=== PATIENT | female | born 1950 | race Caucasian/White ===

== ENCOUNTER 2017-04-14 10:49 | Outpatient (CLI) | payer OTHER ==
--- NOTE | 2017-04-14 15:21 | MMO ---
BILATERAL SCREENING MAMMOGRAM: Date: 04/14/17 INDICATION: Annual exam. COMPARISON: Prior exam dated 08/17/14. FINDINGS: Interpretation of this exam was assisted with computer-aided detection. There are scattered fibroglandular elements bilaterally. There is a small, stable, focal asymmetry within the lower inner aspect of the right breast. No new suspicious mass, cluster of microcalcifications, or area of architectural distortion is eviden t. IMPRESSION: BIRADS 2: Benign Finding(s) Recommend routine annual mammographic screening. POS: [facility]
== END 2017-04-14 10:50 | disposition home or self-care (01) ==
LOC: MAMMO 10:49
PROVIDERS: ATTEND Internal Medicine
DX: Z12.31 Encounter for screening mammogram for malignant neoplasm of breast (principal)
CPT/HCPCS: 77067; G0202

== ENCOUNTER 2017-06-25 06:48 | Day surgery (SDC) | payer OTHER ==
[2017-06-24 09:02] VITALS: BMI 29.0
[2017-06-25 07:43] VITALS: BP 126/60; TEMP 98.2
--- NOTE | 2017-06-25 11:37 | RAD ---
LUMBAR SPINE MYELOGRAM INDICATION: Lumbar radiculopathy. History of prior surgery. PROCEDURE: After informed consent had been obtained, the patient was escorted to the interventional suite and pl aced on the procedural table. [employer] imaging was performed. The patient was placed into a prone posi tion. Skin on the low back was then prepped and draped in the standard sterile fashion and topical a nd regional soft tissue anesthesia was achieved with 1% lidocaine and sodium bicarbonate. Left interl aminar, L3-4 level, approach was selected, and a 22 gauge needle was uneventfully advanced into the t hecal sac with clear color CSF. Subsequently, 9 cc Isovue M200 was instilled into the thecal sac und er real time fluoroscopy. Appropriate opacification of thecal sac demonstrated with imaging stored f or confirmation. The needle was then removed from the patient. The patient tolerated the procedure well and was then transferred to CT to undergo subsequent myelogram. Reference separate report for f ull details. Exposure Data: 0.1 minute intermittent fluoroscopy. IMPRESSION: Technically successful lumbar myelogram as detailed above. POS: [facility]
--- NOTE | 2017-06-25 12:30 | CT ---
CT LUMBAR SPINE WITH CONTRAST: CT LUMBAR MYELOGRAM: CLINICAL HISTORY: Lumbar radiculopathy. Prior back surgery. FINDINGS: The conus medullaris is normal in morphology and terminates at the L1-L2 level. There is postoperati ve metallic fixation of L3-L4 with bilateral pedicle screws at L3 and L4 conjoined by bilateral verti sandra interconnecting rods. There is no obvious hardware complication identified. Moderate degenerati ve and postoperative facet hypertrophy is present at the lower lumbar spine. There is a chronic appe aring fracture at the medial aspect of the right L3-L4 facet joint, involving the right L4 lamina. O sseous fragmentation does encroach upon and produce mild mass effect upon the posterior and right asp ect of the thecal sac, at the L4 level. There is evidence of L3-L4 level left hemilaminectomy. L5-S1: There is no high grade central canal or foraminal stenosis. L4-L5: There is a disk osteophyte complex without high grade central canal stenosis. No significant foraminal stenosis. L3-L4: There is disk osteophyte complex with degenerative disk space narrowing and marginal osteophy te formation. Minimal narrowing of the central canal is present. There is mild left foraminal narro wing on the basis of left asymmetric disk osteophyte complex. L2-L3: An inferior L3 Schmorl's node is present. There is degenerative gas vacuum phenomenon at the level of the disk space. Mild to moderate central canal stenosis on the basis of a broad-based disk with crowding of each bilateral traversing L3 nerve root within the subarticular zones. There is mi ld bilateral neural foraminal narrowing. L1-L2: No significant compromise of the central canal or neural foramina. Incidental note of atherosclerosis and colonic diverticulosis. IMPRESSION: 1. Postoperative lumbar spine with multilevel degenerative change, as outlined above. 2. There is a broad-based disk bulge, left asymmetric, at the L2-L3 level, with mild to moderate eva tral canal stenosis and crowding of the bilateral traversing L3 nerve roots. Mild bilateral neural f oraminal stenosis at this level is also present. 3. Postoperative fusion of the L3-L4 level. Evidence of a prior left hemilaminectomy. There is a c hronic appearing fracture of the right L4 lamina, just medial to the postoperative site. The osseou s hypertrophy/fragmentation related to the fracture site does produce mild mass effect upon the right posterolateral thecal sac of the L4 level, with slight ventral displacement of the adjacent nerve ro ots. There is no associated subluxation of significance. Benefit may be obtained with flexion/exten lucio radiographs. Telephone call of findings placed to the patient's surgeon, Dr. Azar Francisco, at the time of interpreta tion. CODE CR POS: [facility]
[2017-06-25] MEDS ORDERED: Iopamidol-M 200 41% 20 ML VIAL ONE (16:06)
== END 2017-06-25 09:35 | disposition home or self-care (01) ==
LOC: RAD 06:48
PROVIDERS: ATTEND Neurological Surgery
PROC: B02B1ZZ Computerized Tomography (CT Scan) of Spinal Cord using Low Osmolar Contrast (ICD-10-PCS; principal; 2017-06-25)
DX: M48.061 Spinal stenosis, lumbar region without neurogenic claudication (principal); M51.16 Intervertebral disc disorders with radiculopathy, lumbar region; I10 Essential (primary) hypertension; M19.90 Unspecified osteoarthritis, unspecified site; Z88.8 Allergy status to other drugs, medicaments and biological substances; Z88.0 Allergy status to penicillin; Z88.5 Allergy status to narcotic agent; Z98.1 Arthrodesis status; Z79.890 Hormone replacement therapy; Z79.899 Other long term (current) drug therapy
CPT/HCPCS: 62304; 72132

== ENCOUNTER 2018-04-15 08:16 | Outpatient (CLI) | payer OTHER, MEDICARE | END 2018-04-15 08:17 | disposition home or self-care (01) | LOC: BICMAMMO 08:16 | PROVIDERS: ATTEND Internal Medicine | DX: Z12.31 Encounter for screening mammogram for malignant neoplasm of breast (principal) | CPT/HCPCS: 77063; 77067 ==

== ENCOUNTER 2019-04-20 07:30 | Outpatient (CLI) | payer MEDICARE, OTHER ==
--- NOTE | 2019-04-20 08:19 | MMO ---
Bilateral MAMMO Bilat Screen [facility]. CLINICAL HISTORY: Patient is 68 years old and is seen for screening. The patient has no family history of breast cancer. The patient has no personal history of cancer. VIEWS: The views performed were: bilateral craniocaudal with tomosynthesis and bilateral mediolateral oblique with tomosynthesis. FILMS COMPARED: The present examination has been compared to prior imaging studies performed at [facility] on 04/26/2009 and 04/15/2018, and at [facility][1] on 04/24/2007 and 04/25/2008. This study has been interpreted with the assistance of computer-aided detection. MAMMOGRAM FINDINGS: The breasts are almost entirely fat. There are no suspicious masses, suspicious calcifications, or new areas of architectural distortion. IMPRESSION: THERE IS NO MAMMOGRAPHIC EVIDENCE OF MALIGNANCY. A ROUTINE FOLLOW-UP MAMMOGRAM IN 1 YEAR IS RECOMMENDED. THE RESULTS OF THIS EXAM WERE SENT TO THE PATIENT. ACR BI-RADS Category 1 - Negative MAMMOGRAPHY NOTE: 1. A negative mammogram report should not delay a biopsy if a dominant of clinically suspicious mass is present. 2. Approximately 10% to 15% of breast cancers are not detected by mammography. 3. Adenosis and dense breasts may obscure an underlying neoplasm. Reported by: EDITH SANDOVAL MD Electonically Signed: [id number]
== END 2019-04-20 07:31 | disposition home or self-care (01) ==
LOC: BICMAMMO 07:30
PROVIDERS: ATTEND Internal Medicine
DX: Z12.31 Encounter for screening mammogram for malignant neoplasm of breast (principal)
CPT/HCPCS: 77063; 77067

== ENCOUNTER 2020-04-24 08:38 | Outpatient (CLI) | payer MEDICARE, OTHER ==
--- NOTE | 2020-04-24 09:59 | MMO ---
Bilateral MAMMO Bilat Screen [facility]. CLINICAL HISTORY: Patient is 69 years old and is seen for screening. The patient has no family history of breast cancer. The patient has no personal history of cancer. VIEWS: The views performed were: bilateral craniocaudal with tomosynthesis and bilateral mediolateral oblique with tomosynthesis. FILMS COMPARED: The present examination has been compared to prior imaging studies performed at [facility] on 03/18/2018, and at [facility] on 05/24/2016, 04/15/2018 and 04/20/2019. This study has been interpreted with the assistance of computer-aided detection. MAMMOGRAM FINDINGS: The breasts are almost entirely fat. There are no suspicious masses, suspicious calcifications, or new areas of architectural distortion. IMPRESSION: THERE IS NO MAMMOGRAPHIC EVIDENCE OF MALIGNANCY. A ROUTINE FOLLOW-UP MAMMOGRAM IN 1 YEAR IS RECOMMENDED. THE RESULTS OF THIS EXAM WERE SENT TO THE PATIENT. ACR BI-RADS Category 1 - Negative MAMMOGRAPHY NOTE: 1. A negative mammogram report should not delay a biopsy if a dominant of clinically suspicious mass is present. 2. Approximately 10% to 15% of breast cancers are not detected by mammography. 3. Adenosis and dense breasts may obscure an underlying neoplasm. Reported by: JESSEE QUINTERO MD Electonically Signed: [id number]
== END 2020-04-24 08:39 | disposition home or self-care (01) ==
LOC: BICMAMMO 08:38
PROVIDERS: ATTEND Internal Medicine
DX: Z12.31 Encounter for screening mammogram for malignant neoplasm of breast (principal)
CPT/HCPCS: 77063; 77067

== ENCOUNTER 2021-04-27 08:09 | Outpatient (CLI) | payer MEDICARE, OTHER | END 2021-04-27 08:10 | disposition home or self-care (01) | LOC: BICMAMMO 08:09 | PROVIDERS: ATTEND Internal Medicine | DX: Z12.31 Encounter for screening mammogram for malignant neoplasm of breast (principal) | CPT/HCPCS: 77063; 77067 ==

== ENCOUNTER 2021-12-11 14:43 | Outpatient (CLI) | payer MEDICARE, OTHER | END 2021-12-11 14:44 | disposition home or self-care (01) | LOC: ULT 14:43 | PROVIDERS: ATTEND Internal Medicine | DX: M25.462 Effusion, left knee (principal) | CPT/HCPCS: 76999 ==

== ENCOUNTER 2022-07-04 08:50 | Outpatient (CLI) | payer MEDICARE, OTHER | END 2022-07-04 08:51 | disposition home or self-care (01) | LOC: BICMAMMO 08:50 | PROVIDERS: ATTEND Internal Medicine | DX: Z12.31 Encounter for screening mammogram for malignant neoplasm of breast (principal); Z13.820 Encounter for screening for osteoporosis; Z78.0 Asymptomatic menopausal state; M85.852 Other specified disorders of bone density and structure, left thigh | CPT/HCPCS: 77063; 77067; 77080 ==

== ENCOUNTER 2023-07-07 08:57 | Outpatient (CLI) | payer MEDICARE, OTHER | END 2023-07-07 08:58 | disposition home or self-care (01) | LOC: BICMAMMO 08:57 | PROVIDERS: ATTEND Internal Medicine | DX: Z12.31 Encounter for screening mammogram for malignant neoplasm of breast (principal) | CPT/HCPCS: 77063; 77067 ==

== ENCOUNTER 2024-04-16 10:35 | Outpatient (CLI) | payer MEDICARE, OTHER | END 2024-04-16 10:36 | disposition home or self-care (01) | LOC: BICRAD 10:35 | PROVIDERS: ATTEND Internal Medicine | DX: R05.1 Acute cough (principal) | CPT/HCPCS: 71046 ==

== ENCOUNTER 2024-07-13 11:31 | Emergency (ER) | payer MEDICARE, OTHER ==
[2024-07-13] MEDS ORDERED: traMADol HCl 50 MG TAB ONE (13:59)
== END 2024-07-13 14:34 | disposition home or self-care (01) ==
LOC: ERS 11:31
DX: M19.072 Primary osteoarthritis, left ankle and foot (principal); I10 Essential (primary) hypertension; Z79.899 Other long term (current) drug therapy; Z55.6 Problems related to health literacy; M79.89 Other specified soft tissue disorders
CPT/HCPCS: 36415; 82306; 82977; 84075; 93005

== ENCOUNTER 2024-07-21 08:15 | Outpatient (CLI) | payer MEDICARE, OTHER | END 2024-07-21 08:16 | disposition home or self-care (01) | LOC: ULT 08:15 | PROVIDERS: ATTEND Internal Medicine | DX: R74.8 Abnormal levels of other serum enzymes (principal); K83.8 Other specified diseases of biliary tract | CPT/HCPCS: 76705 ==

== ENCOUNTER 2025-05-18 07:37 | Outpatient (CLI) | payer MEDICARE, OTHER ==
[2025-05-18 08:01] LABS: ALT (SGPT) 47 U/L (Less than 34); AST (SGOT) 45 U/L (11-34); Albumin 4.2 g/dL (3.1-4.5); Alkaline Phosphatase 141 U/L (40-110); Anion Gap 15 mmol/L (10-20); BUN (Urea Nitrogen) 20 mg/dL (9.8-20.1); Bilirubin, Total 0.3 mg/dL (0.3-1.2); Calc. Creatinine Clearance 0 mL/min (70-130); Calcium 10.0 mg/dL (7.8-10.44); Carbon Dioxide 22 mmol/L (23-31); Chloride 100 mmol/L (98-107); Globulin 3.4 g/dL (2.4-3.5); Glucose 111 mg/dL (83-110); Potassium 4.2 mmol/L (3.5-5.1); Sodium 133 mmol/L (136-145)
[2025-05-18 08:11] LABS: Estimated GFR - POC 43.0
[2025-05-18] MEDS ORDERED: Iopamidol 370 76% 100 ML VIAL ONE (09:14)
== END 2025-05-18 07:38 | disposition home or self-care (01) ==
LOC: CT 07:37
PROVIDERS: ATTEND Internal Medicine Gastroenterology
DX: R93.89 Abnormal findings on diagnostic imaging of other specified body structures (principal); R79.89 Other specified abnormal findings of blood chemistry; R19.7 Diarrhea, unspecified; K58.9 Irritable bowel syndrome, unspecified; R00.0 Tachycardia, unspecified; R45.89 Other symptoms and signs involving emotional state
CPT/HCPCS: 36415; 74170; 80053; 82565